=== PATIENT | male | born 1975 | race Caucasian/White ===

== ENCOUNTER 2021-10-02 18:17 | Emergency (ER) | payer BC ==
[~2021-10-02] VITALS: Ht 182.9 cm; Wt 103.4 kg
[~2021-10-02 18:17] MED LIST: AMOXICILLIN
[2021-10-02] MEDS ORDERED: LISINOPRIL10 MG PO (18:43)
[2021-10-02 21:58] VITALS: BP 160/109
== END 2021-10-02 21:58 | disposition home or self-care (01) ==
LOC: M.ERS 18:17
DX: B34.9 Viral infection, unspecified (principal); Z20.822 Contact with and (suspected) exposure to COVID-19; M25.569 Pain in unspecified knee; Z79.2 Long term (current) use of antibiotics; Z79.899 Other long term (current) drug therapy